=== PATIENT | female | born 1975 | race Hispanic/Latino ===

== ENCOUNTER 2017-08-20 10:03 | Emergency (ER) | payer OTHER ==
[2017-08-20] MEDS ORDERED: Silver Sulfadiazine 1% Cream 50 GM JAR ONE (10:22)
== END 2017-08-20 10:38 | disposition home or self-care (01) ==
LOC: NAV ERS 10:03
DX: T23.211A Burn of second degree of right thumb (nail), initial encounter (principal); T23.232A Burn of second degree of multiple left fingers (nail), not including thumb, initial encounter; E03.9 Hypothyroidism, unspecified; Z79.899 Other long term (current) drug therapy; X08.8XXA Exposure to other specified smoke, fire and flames, initial encounter
CPT/HCPCS: 99283